=== PATIENT | female | born 1970 | race Caucasian/White ===

== ENCOUNTER 2019-05-14 19:12 | Observation (INO) | payer OTHER ==
[2019-05-14] MEDS ORDERED: SODIUM CHLORIDE 0.9% 1,000 ML IV ONE (19:24)
[2019-05-14] MEDS: SODIUM CHLORIDE 0.9% 1,000 ML IV SCH (19:44)
[2019-05-14 20:04] LABS: Anisocytosis Slight; Basophils # (A) 0.1 k/uL (0-0.2); Basophils % (A) 1 %; Eosinophils # (A) 0.5 k/uL (0-0.7); Eosinophils % (A) 5 %; HCT 24.4 % (34.0-46.0); Hypochromasia Marked; Lymphocytes # (A) 1.6 k/uL (1.0-4.8); Lymphocytes % (A) 16 %; MCH 15.5 pg (25.0-35.0); MCHC 26.1 g/dL (31.0-37.0); MCV 59.2 fL (80.0-100.0); Mean Platelet Volume 6.7; Microcytosis Marked; Monocytes # (A) 0.6 k/uL (0-1.0); Monocytes % (A) 6 %; Neutrophils # (A) 6.7 k/uL (1.3-7.7); Neutrophils % (A) 68 %; Platelet Count 382 k/uL (150-450); Poikilocytosis Slight; RBC 4.13 m/uL (3.80-5.40); RDW 18.9 % (11.5-15.5); WBC 9.9 k/uL (3.8-10.6)
[2019-05-14 20:05] LABS: Appearance,Urine Clear (Clear); Bacteria,Urine Rare /hpf; Bilirubin,Urine Negative (Negative); Blood,Urine Small (Negative); Color,Urine Yellow; Glucose,Urine (UA) Negative (Negative); Ketones,Urine Negative (Negative); Leukocyte Esterase,Urine Negative (Negative); Mucus,Urine Few /hpf; Nitrite,Urine Negative (Negative); Protein,Urine Negative (Negative); RBC,Urine 7 /hpf (0-5); Squamous Epithelial Cell,Urine <1 /hpf (0-4); Urobilinogen,Urine <2.0 mg/dL (<2.0); WBC,Urine 1 /hpf (0-5)
[2019-05-14 20:09] LABS: HGB 6.4 gm/dL (11.4-16.0)
--- NOTE | 2019-05-14 20:21 | ED ---
Back Pain HPI - General Chief Complaint: Back Pain/Injury Stated Complaint: Lower back pain Time Seen by Provider: 05/14/19 19:19 Source: patient Limitations: no limitations - History of Present Illness Initial Comments: 48-year-old female presents today for chief complaint of left-sided flank pain times one day. Patient states the past day she has had on and off left flank pain sharp in nature at times radiates towards her left groin. Patient denies known history of kidney stones denies dysuria urgency frequency or hematuria. Patient states when the pain is present she has nausea, vomiting. Denies chest pain SOB. Denies abdominal pain, vaginal bleeding. Patient denies rectal bleeding or dark stools. Patient denies any ither complaints. Denies fall/trauma injuries. - Related Data Allergies Allergy/AdvReac Type Severity Reaction Status Date / Time No Known Allergies Allergy Verified 05/14/19 21:22 Review of Systems ROS Statement: Those systems with pertinent positive or pertinent negative responses have been documented in the HPI. ROS Other: All systems not noted in ROS Statement are negative. Past Medical History Past Medical History: Asthma History of Any Multi-Drug Resistant Organisms: None Reported Past Surgical History: Section Past Psychological History: No Psychological Hx Reported Smoking Status: Never smoker Past Alcohol Use History: None Reported Past Drug Use History: None Reported General Exam - General Exam Comments Initial Comments: General: The patient is awake and alert, in no distress Eye: Pupils are equal, round and reactive to light, extra-ocular movements are intact. No nystagmus. There is normal conjunctiva bilaterally. No signs of icterus. Ears, nose, mouth and throat: There are moist but pale mucous membranes and no oral lesions. Neck: The neck is supple, there is no tenderness or JVD. Cardiovascular: There is a regular rate and rhythm. No murmur, rub or gallop is appreciated. Respiratory: Lungs are clear to auscultation, respirations are non-labored, breath sounds are equal. No wheezes, stridor, rales, or rhonchi. Gastrointestinal: Soft, non-distended, non-tender abdomen without masses or organomegaly noted. There is no rebound or guarding present. Musculoskeletal: Normal ROM, no tenderness. Strength 5/5. Sensation intact. Radial pulses equal bilaterally 2+. Neurological: A&O x 3. CN II-XII intact grossly, There are no obvious motor or sensory deficits. Coordination appears grossly intact. Speech is normal. Skin: Skin is warm and dry and no rashes or lesions are noted. Psychiatric: Cooperative, appropriate mood & affect, normal judgment. Limitations: no limitations Course Vital Signs 05/14/19 05/14/19 05/14/19 19:14 19:45 21:02 Temperature 98.6 F 98.4 F 98.2 F Pulse Rate 120 H 105 H 105 H Respiratory 18 16 16 Rate Blood Pressure 163/81 150/96 137/90 O2 Sat by Pulse 97 99 100 Oximetry Medical Decision Making - Medical Decision Making 48-year-old female presenting for left flank pain left UVJ stone. Patient has no current pain. No signs of infected stone. Patient states she is having per iods with her last menstruation one week prior. She admits to fatigue and pallor. Patient's hemoglobin 6.4. Denies any current vaginal bleeding or rectal bleeding or dark stools. Patient denies any history of alcohol abuse or use of anticoagulation. Patient states she has had elevated heart rate most of her life as well as heavy periods. At this time feel patient's anemia symptomatic patient will be transfused. Patient has no current pain associated with her left UVJ stone. Discussed case with attending provider Dr. France. Who is agreeable to admission. Dr. Rowan group accepted admission. Patient agreeable to care plan. NO current OBGYN care/evaluation for heavy vaginal bleeding. - Lab Data Result diagrams: 05/14/19 19:43 05/14/19 19:43 Lab Results 05/14/19 05/14/19 05/14/19 Range/Units 19:43 19:43 19:43 WBC 9.9 (3.8-10.6) k/uL RBC 4.13 (3.80-5.40) m/uL Hgb 6.4 L* (11.4-16.0) gm/dL Hct 24.4 L (34.0-46.0) % MCV 59.2 L (80.0-100.0) fL MCH 15.5 L (25.0-35.0) pg MCHC 26.1 L (31.0-37.0) g/dL RDW 18.9 H (11.5-15.5) % Plt Count 382 (150-450) k/uL Neutrophils % 68 % Lymphocytes % 16 % Monocytes % 6 % Eosinophils % 5 % Basophils % 1 % Neutrophils # 6.7 (1.3-7.7) k/uL Lymphocytes # 1.6 (1.0-4.8) k/uL Monocytes # 0.6 (0-1.0) k/uL Eosinophils # 0.5 (0-0.7) k/uL Basophils # 0.1 (0-0.2) k/uL Hypochromasia Marked Poikilocytosis Slight Anisocytosis Slight Microcytosis Marked Sodium 137 (137-145) mmol/L Potassium 3.9 (3.5-5.1) mmol/L Chloride 104 (98-107) mmol/L Carbon Dioxide 25 (22-30) mmol/L Anion Gap 8 mmol/L BUN 12 (7-17) mg/dL Creatinine 0.58 (0.52-1.04) mg/dL Est GFR (CKD-EPI)AfAm >90 (>60 ml/min/1.73 sqM) Est GFR (CKD-EPI)NonAf >90 (>60 ml/min/1.73 sqM) Glucose 99 (74-99) mg/dL Calcium 9.6 (8.4-10.2) mg/dL Total Bilirubin 0.5 (0.2-1.3) mg/dL AST 24 (14-36) U/L ALT 24 (9-52) U/L Alkaline Phosphatase 86 (38-126) U/L Total Protein 8.1 (6.3-8.2) g/dL Albumin 4.5 (3.5-5.0) g/dL Urine Color Yellow Urine Appearance Clear (Clear) Urine pH 6.0 (5.0-8.0) Ur Specific [place] 1.010 (1.001-1.035) Urine Protein Negative (Negative) Urine Glucose (UA) Negative (Negative) Urine Ketones Negative (Negative) Urine Blood Small H (Negative) Urine Nitrite Negative (Negative) Urine Bilirubin Negative (Negative) Urine Urobilinogen <2.0 (<2.0) mg/dL Ur Leukocyte Esterase Negative (Negative) Urine RBC 7 H (0-5) /hpf Urine WBC 1 (0-5) /hpf Ur Squamous Epith Cells <1 (0-4) /hpf Urine Bacteria Rare H (None) /hpf Urine Mucus Few H (None) /hpf Urine HCG, Qual (Not Detectd) Blood Type Recheck Bld Type Recheck Status Spec Expiration Date 05/14/19 05/14/19 Range/Units 19:43 20:43 WBC (3.8-10.6) k/uL RBC (3.80-5.40) m/uL Hgb (11.4-16.0) gm/dL Hct (34.0-46.0) % MCV (80.0-100.0) fL MCH (25.0-35.0) pg MCHC (31.0-37.0) g/dL RDW (11.5-15.5) % Plt Count (150-450) k/uL Neutrophils % % Lymphocytes % % Monocytes % % Eosinophils % % Basophils % % Neutrophils # (1.3-7.7) k/uL Lymphocytes # (1.0-4.8) k/uL Monocytes # (0-1.0) k/uL Eosinophils # (0-0.7) k/uL Basophils # (0-0.2) k/uL Hypochromasia Poikilocytosis Anisocytosis Microcytosis Sodium (137-145) mmol/L Potassium (3.5-5.1) mmol/L Chloride (98-107) mmol/L Carbon Dioxide (22-30) mmol/L Anion Gap mmol/L BUN (7-17) mg/dL Creatinine (0.52-1.04) mg/dL Est GFR (CKD-EPI)AfAm (>60 ml/min/1.73 sqM) Est GFR (CKD-EPI)NonAf (>60 ml/min/1.73 sqM) Glucose (74-99) mg/dL Calcium (8.4-10.2) mg/dL Total Bilirubin (0.2-1.3) mg/dL AST (14-36) U/L ALT (9-52) U/L Alkaline Phosphatase (38-126) U/L Total Protein (6.3-8.2) g/dL Albumin (3.5-5.0) g/dL Urine Color Urine Appearance (Clear) Urine pH (5.0-8.0) Ur Specific [place] (1.001-1.035) Urine Protein (Negative) Urine Glucose (UA) (Negative) Urine Ketones (Negative) Urine Blood (Negative) Urine Nitrite (Negative) Urine Bilirubin (Negative) Urine Urobilinogen (<2.0) mg/dL Ur Leukocyte Esterase (Negative) Urine RBC (0-5) /hpf Urine WBC (0-5) /hpf Ur Squamous Epith Cells (0-4) /hpf Urine Bacteria (None) /hpf Urine Mucus (None) /hpf Urine HCG, Qual Not Detected (Not Detectd) Blood Type Recheck No Previous Record Bld Type Recheck Status CABO Indicated Spec Expiration Date 05/17/2019 - 2342 Disposition Clinical Impression: Symptomatic anemia, History of heavy vaginal bleeding, Tachycardia, Left ureteral stone Disposition: ADMITTED IP TO THIS [facility] Condition: Stable Is patient prescribed a controlled substance at d/c from ED?: No Time of Disposition: 20:47 Decision to Admit Reason: Admit from EC Decision Date: 05/14/19 Decision Time: 20:47
--- NOTE | 2019-05-14 20:25 | CT ---
EXAMINATION TYPE: CT abdomen pelvis wo con DATE OF EXAM: 05/14/2019 COMPARISON: None HISTORY: Left flank pain and vomiting CT DLP: 803.9 mGycm Automated exposure control for dose reduction was used. TECHNIQUE: Helical acquisition of images was performed from the lung bases through the pelvis. FINDINGS: Lung bases are clear. There is no pleural effusion. Heart size is normal. There is no pericardial eff usion. Liver shows no focal defect. Spleen pancreas gallbladder appear normal. Stomach appears fairly normal . There is small hiatal hernia. There is no adrenal mass. Kidneys have normal size. There is bilateral multiple renal calculi. These measure up to 5 mm. There is 7 mm obstructing calculus at the left ureteral pelvic junction. There is mild left-sided hydronephrosis. There is mild left side perinephric edema. There is no retroperitone al adenopathy. Appendix appears normal. Bladder distends smoothly. Uterus is anteverted. There is no free fluid in the pelvis. There is no mesenteric edema. There is no ascites or free air. There is no sign of a bowel obstructio n. I see no bony destructive process. Lumbar vertebra have normal spacing and alignment. There is no compression fracture. Bony pelvis is intact. IMPRESSION: THERE IS OBSTRUCTING CALCULUS AT THE LEFT URETEROPELVIC JUNCTION WITH LEFT-SIDED HYDRONEPHROSIS. MULT IPLE BILATERAL SMALL RENAL CALCULI. NORMAL APPENDIX.
[2019-05-14 20:34] LABS: ALT 24 U/L (9-52); AST 24 U/L (14-36); African American GFR (CKD) >90 (>60 ml/min/1.73 sqM); Albumin 4.5 g/dL (3.5-5.0); Alkaline Phosphatase 86 U/L (38-126); Anion Gap 8 mmol/L; Blood Urea Nitrogen 12 mg/dL (7-17); Calcium 9.6 mg/dL (8.4-10.2); Carbon Dioxide 25 mmol/L (22-30); Chloride 104 mmol/L (98-107); Glucose 99 mg/dL (74-99); Non-African American GFR(CKD) >90 (>60 ml/min/1.73 sqM); Potassium 3.9 mmol/L (3.5-5.1); Sodium 137 mmol/L (137-145); Total Bilirubin 0.5 mg/dL (0.2-1.3); Total Protein 8.1 g/dL (6.3-8.2)
[2019-05-14] MEDS ORDERED: NALOXONE 0.4 MG/ML 1 ML VIAL IV PRN (20:44)
[2019-05-15] MEDS: SODIUM CHLORIDE 0.9% 1,000 ML IV SCH ×3 (06:34→21:56)
[2019-05-15 11:58] LABS: Anisocytosis Moderate; Basophils # (A) 0.1 k/uL (0-0.2); Basophils % (A) 2 %; Eosinophils # (A) 0.5 k/uL (0-0.7); Eosinophils % (A) 7 %; HCT 25.3 % (34.0-46.0); Hypochromasia Marked; Lymphocytes # (A) 1.5 k/uL (1.0-4.8); Lymphocytes % (A) 20 %; MCH 15.9 pg (25.0-35.0); MCHC 25.8 g/dL (31.0-37.0); MCV 61.8 fL (80.0-100.0); Mean Platelet Volume 7.7; Microcytosis Marked; Monocytes # (A) 0.5 k/uL (0-1.0); Monocytes % (A) 6 %; Neutrophils # (A) 4.8 k/uL (1.3-7.7); Neutrophils % (A) 63 %; Platelet Count 351 k/uL (150-450); Poikilocytosis Moderate; RDW 21.8 % (11.5-15.5); WBC 7.5 k/uL (3.8-10.6)
[2019-05-15 12:06] LABS: HGB 6.5 gm/dL (11.4-16.0)
[2019-05-15 15:36] LABS: Anisocytosis Moderate; Basophils # (A) 0.1 k/uL (0-0.2); Basophils % (A) 1 %; Eosinophils # (A) 0.5 k/uL (0-0.7); Eosinophils % (A) 7 %; HCT 26.9 % (34.0-46.0); HGB 7.8 gm/dL (11.4-16.0); Hypochromasia Marked; Lymphocytes # (A) 1.6 k/uL (1.0-4.8); Lymphocytes % (A) 23 %; MCH 18.6 pg (25.0-35.0); MCHC 28.9 g/dL (31.0-37.0); MCV 64.5 fL (80.0-100.0); Mean Platelet Volume 7.7; Microcytosis Marked; Monocytes # (A) 0.5 k/uL (0-1.0); Monocytes % (A) 7 %; Neutrophils # (A) 4.1 k/uL (1.3-7.7); Neutrophils % (A) 59 %; Platelet Count 321 k/uL (150-450); Poikilocytosis Marked; RBC 4.17 m/uL (3.80-5.40)
--- NOTE | 2019-05-15 18:19 | P.HPIM ---
History of Present Illness H&P Date: 05/15/19 Chief Complaint: Left flank pain Ms. Cook is a 48-year-old female with a past medical history of asthma and seasonal ALLERGIES coming in with a chief complaint of left-sided flank pain. Patient states that she started to have left-sided flank short pain that was radiating to her left groin. Patient was also having associated nausea and vomiting she threw up around 10-12 times yesterday. Patient denies having any hematuria or dysuria or increased frequency in her urination. Patient denies having any history of kidney stones. Patient denied having abdominal pain. No diarrhea or constipation. She denies having any chest pain or difficulty in breathing. Patient denies having any fevers chills or rigors. In the emergency room patient had a CAT scan of the abdomen and pelvis showing obstructing calculi at the left uretero pelvic junction with left-sided hyd ronephrosis. Multiple bilateral small renal calculi. And her blood work done showed a hemoglobin of 6.4 with an MCV of the 59.2. Patient mentions about having menorrhagia. She states that her periods are regular but she has heavy periods with clotting. Patient also complains of chronic fatigue and mild shortness of breath. She says that she was evaluated by her primary care physician and was diagnosed with seasonal ALLERGIES and that she is getting ALLERGY shots. Review of Systems REVIEW OF SYSTEMS: PSYCH: No anxiety or depression. NEURO:No c/o weakness of the extremties, No facial droop, No speech abnormalities. VASCULAR: Peripheral nervous system within the normal limits no edema HEMATOLOGIC: No history of easy bleeding and bruising . No recent infections . RESPIRATORY: No cough, No SOB, No chest discomfort. IMMUNE: No infections INTEGUMENT: no rashes OPHTHALMOLOGIC: No blurry vision and no eye discharge : No dysuria or hematuria [employer]ING CLERK: Menorrhagia CARDIAC: No chest pain , shortness of breath , paroxysmal nocturnal dyspnea MUSCULOSKELETAL : No Aches or pains in the joints or muscles. GI: As per HPI All 13 review of systems are done and are negative except for the ones mentioned above. Past Medical History Past Medical History: Asthma, GERD/Reflux History of Any Multi-Drug Resistant Organisms: None Reported Past Surgical History: Section Past Anesthesia/Blood Transfusion Reactions: No Reported Reaction Past Psychological History: No Psychological Hx Reported Smoking Status: Never smoker Past Alcohol Use History: Rare Additional Past Alcohol Use History / Comment(s): pt states she has an occational drink every 6 months or so Past Drug Use History: None Reported Medications and Allergies Home Medications Medication Instructions Recorded Confirmed Type Albuterol Inhaler [Ventolin Hfa 1 - 2 puff INHALATION RT-Q6H PRN 05/14/1905/14 History Inhaler] Esomeprazole Magnesium [NexIUM] 40 mg PO DAILY PRN 05/14/19 05/14/19 History Allergies Allergy/AdvReac Type Severity Reaction Status Date / Time No Known Allergies Allergy Verified 05/14/19 21:22 Physical Exam Vitals: Vital Signs Temp Pulse Pulse Resp BP BP Pulse Ox 05/15/19 14:58 98.5 F 90 17 139/86 96 05/15/19 14:55 98.5 F 95 17 95 05/15/19 13:55 97.7 F 95 17 139/89 94 L 05/15/19 13:21 98.2 F 94 17 124/77 05/15/19 13:12 98.5 F 98 17 135/88 05/15/19 13:08 98.3 F 101 H 17 153/84 95 05/15/19 06:57 98.5 F 97 17 130/78 96 05/15/19 06:32 98 F 92 16 121/74 05/15/19 06:30 98 F 99 16 131/77 05/15/19 03:38 98.3 F 94 16 136/77 97 05/15/19 03:08 98 F 93 16 120/77 96 05/15/19 02:58 98.1 F 100 16 129/77 95 05/15/19 02:49 98.5 F 93 16 134/80 97 05/15/19 00:46 98.6 F 94 16 145/87 97 05/14/19 22:00 97.9 F 100 16 149/84 99 05/14/19 21:02 98.2 F 105 H 16 137/90 100 05/14/19 19:45 98.4 F 105 H 16 150/96 99 05/14/19 19:14 98.6 F 120 H 18 163/81 97 Intake and Output 05/15/19 05/15/19 05/15/19 06:59 14:59 22:59 Intake Total 310 1718 Balance 310 1718 Intake: Intake, IV Titration 500 Amount Sodium Chloride 0.9% 1, 500 000 ml @ 100 mls/hr IV . Q10H [facility] Rx#:[id number] Oral 598 Blood Product 310 620 Rc Pheresis 2 As3 Unit 310 [id number] Rc Pheresis 2 As3 Unit 310 [id number] Other: Voiding Method Toilet # Voids 4 2 GENERAL EXAM GEN. APPEARANCE: alert, in no apparent distress HEAD EXAM: atraumatic, normocephalic, normal inspection EYE EXAM: Mild pallor. No icterus. No thyromegaly. ENT EXAM: normal exam, mucous membranes moist NECK EXAM: normal inspection. no lymphadenopathy RESPIRATORY EXAM: normal lung sounds bilaterally. No wheezes or crackles. CARDIOVASCULAR EXAM: Tachycardia. S1 and S2 heard. GI/ABDOMINAL EXAM: soft, normal bowel sounds. No distention. No tenderness. No guarding or rigidity. EXTREMITIES EXAM: No edema. BACK EXAM: No CVA tenderness NEUROLOGICAL EXAM: alert, oriented X3, no focal neurological deficits PSYCHIATRIC EXAM: normal affect, normal mood SKIN EXAM: Eczematous rash over the upper and lower extremities Results CBC & Chem 7: 05/15/19 15:20 05/14/19 19:43 Labs: Abnormal Lab Results - Last 24 Hours (Table) 05/14/19 05/14/19 05/14/19 Range/Units 19:43 19:43 20:43 Hgb 6.4 L* (11.4-16.0) gm/dL Hct 24.4 L (34.0-46.0) % MCV 59.2 L (80.0-100.0) fL MCH 15.5 L (25.0-35.0) pg MCHC 26.1 L (31.0-37.0) g/dL RDW 18.9 H (11.5-15.5) % Urine Blood Small H (Negative) Urine RBC 7 H (0-5) /hpf Urine Bacteria Rare H (None) /hpf Urine Mucus Few H (None) /hpf Crossmatch See Detail 05/15/19 05/15/19 Range/Units 11:01 15:20 Hgb 6.5 L* 7.8 L (11.4-16.0) gm/dL Hct 25.3 L 26.9 L (34.0-46.0) % MCV 61.8 L 64.5 L (80.0-100.0) fL MCH 15.9 L 18.6 L (25.0-35.0) pg MCHC 25.8 L 28.9 L (31.0-37.0) g/dL RDW 21.8 H 24.0 H (11.5-15.5) % Urine Blood (Negative) Urine RBC (0-5) /hpf Urine Bacteria (None) /hpf Urine Mucus (None) /hpf Crossmatch Thrombosis Risk Factor Assmnt - Choose All That Apply Each Factor Represents 1 point: Age 41-60 years, Obesity (BMI >25) Thrombosis Risk Factor Assessment Total Risk Factor Score: 2 Thrombosis Risk Factor Assessment Level: Low Risk Assessment and Plan Assessment: ASSESSMENT Left-sided flank pain - due to obstructing renal calculi at the ureteropelvic junction with left-sided hydronephrosis Anemia- possibly iron deficiency anemia due to menorrhagia Asthma Obesity with BMI of 34.3 PLAN: Patient's left-sided flank pain has resolved completely. Probably due to passing of the renal calculi. She received 2 units of PRBCs and her hemoglobin is at 7.4. We will check iron panel, to look for chronic blood loss. The treatment plan was discussed with the patient in detail. Further recomme ndations to follow depending on the progress of the patient.
[2019-05-15] MEDS ORDERED: diphenhydrAMINE 25 MG CAP PO ONE (21:44)
[2019-05-15] MEDS ORDERED: FAMOTIDINE 20 MG TAB PO STA (21:44)
[2019-05-15] MEDS ORDERED: methylPREDNISolone SOD SUCCI 125 MG/2 ML VIAL IV STA (21:45)
[2019-05-16 07:48] VITALS: RESP 18
[2019-05-16 08:01] LABS: African American GFR (CKD) >90 (>60 ml/min/1.73 sqM); Anion Gap 12 mmol/L; Blood Urea Nitrogen 5 mg/dL (7-17); Calcium 9.4 mg/dL (8.4-10.2); Carbon Dioxide 22 mmol/L (22-30); Chloride 105 mmol/L (98-107); Glucose 172 mg/dL (74-99); Non-African American GFR(CKD) >90 (>60 ml/min/1.73 sqM); Potassium 4.4 mmol/L (3.5-5.1); Sodium 139 mmol/L (137-145)
[2019-05-16 08:10] LABS: Anisocytosis Moderate; HCT 30.2 % (34.0-46.0); HGB 8.5 gm/dL (11.4-16.0); Hypochromasia Marked; MCH 18.4 pg (25.0-35.0); MCHC 28.3 g/dL (31.0-37.0); MCV 64.9 fL (80.0-100.0); Mean Platelet Volume 8.5; Microcytosis Marked; Platelet Count 367 k/uL (150-450); Poikilocytosis Marked; RBC 4.66 m/uL (3.80-5.40); RDW 23.6 % (11.5-15.5)
[2019-05-16 10:00] LABS: Basophils # (M) 0.07 k/uL (0-0.2); Neutrophils % (M) 84 %; Nucleated Red Blood Cells 1 /100 WBC (0-0); Total Cells Counted 200
[2019-05-16 10:02] LABS: Lymphocytes # (M) 0.88 k/uL (1.0-4.8); Neutrophils # (M) 5.71 k/uL (1.3-7.7); WBC 6.8 k/uL (3.8-10.6)
[2019-05-16] MEDS: SODIUM CHLORIDE 0.9% 1,000 ML IV SCH (14:09)
[2019-05-16 15:14] VITALS: PULSE 98; TEMP 98.4
[2019-05-16 15:22] VITALS: BP 157/77
--- NOTE | 2019-05-16 15:24 | P.DS ---
Providers Date of admission: 05/16/19 08:34 Expected date of discharge: 05/16/19 Attending physician: Linda Rowan Consults: 05/15/19 18:29 Consult Physician Routine Consulting Provider: Joseph Nicholson Consult Reason/Comments: LEFT SIDED FLANK PAIN Do you want consulting provider notified?: Yes Primary care physician: Physician Nonstaff Hospital Course: HPI - Ms. Cook is a 48-year-old female with a past medical history of asthma and seasonal ALLERGIES coming in with a chief complaint of left-sided flank pain. Patient states that she started to have left-sided flank short pain that was radiating to her left groin. Patient was also having associated nausea and vomiting she threw up around 10-12 times yesterday. Patient denies having any hematuria or dysuria or increased frequency in her urination. Patient denies having any history of kidney stones. Patient denied having abdominal pain. No diarrhea or constipation. She denies having any chest pain or difficulty in breathing. Patient denies having any fevers chills or rigors. In the emergency room patient had a CAT scan of the abdomen and pelvis showing obstructing calculi at the left uretero pelvic junction with left-sided hydronephrosis. Multiple bilateral small renal calculi. And her blood work done showed a hemoglobin of 6.4 with an MCV of the 59.2. Patient mentions about having menorrhagia. She states that her periods are regular but she has heavy periods with clotting. Patient also complains of chronic fatigue and mild shortness of breath. She says that she was evaluated by her primary care physician and was diagnosed with seasonal ALLERGIES and that she is getting ALLERGY shots. During her hospital stay- patient was given 2 units of PRBCs and hemoglobin came up to 8.5. She was evaluated by urology and they started her on Flomax 0.4 mg and Motrin when necessary for pain. She was cleared by urology to be discharged home. Now that her hemoglobin is stable around 8. She is stable to be going home. Counselled the patient regarding follow-up with [employer] doctor for menorrhagia and also to start taking iron supplements that are prescribed today. Follow-up; she is advised to follow up with her primary care physician in 2-3 days. Vital Signs - 8 hr 05/16/19 05/16/19 15:00 15:21 Temperature 98.4 F Pulse Rate [ 98 Pulse Oximetery ] Respiratory 18 Rate Blood Pressure 169/102 157/77 [Right Arm] O2 Sat by Pulse 97 Oximetry Laboratory Last Values WBC 6.8 k/uL (3.8-10.6) 05/16/19 06:56 RBC 4.66 m/uL (3.80-5.40) 05/16/19 06:56 Hgb 8.5 gm/dL (11.4-16.0) L 05/16/19 06:56 Hct 30.2 % (34.0-46.0) L 05/16/19 06:56 MCV 64.9 fL (80.0-100.0) L 05/16/19 06:56 MCH 18.4 pg (25.0-35.0) L 05/16/19 06:56 MCHC 28.3 g/dL (31.0-37.0) L 05/16/19 06:56 RDW 23.6 % (11.5-15.5) H 05/16/19 06:56 Plt Count 367 k/uL (150-450) 05/16/19 06:56 Neutrophils % 59 % 05/15/19 15:20 Neutrophils % (Manual) 84 % 05/16/19 06:56 Lymphocytes % 23 % 05/15/19 15:20 Lymphocytes % (Manual) 13 % 05/16/19 06:56 Monocytes % 7 % 05/15/19 15:20 Monocytes % (Manual) 3 % 05/16/19 06:56 Eosinophils % 7 % 05/15/19 15:20 Basophils % 1 % 05/15/19 15:20 Basophils % (Manual) 1 % 05/16/19 06:56 Neutrophils # 4.1 k/uL (1.3-7.7) 05/15/19 15:20 Neutrophils # (Manual) 5.71 k/uL (1.3-7.7) 05/16/19 06:56 Lymphocytes # 1.6 k/uL (1.0-4.8) 05/15/19 15:20 Lymphocytes # (Manual) 0.88 k/uL (1.0-4.8) L 05/16/19 06:56 Monocytes # 0.5 k/uL (0-1.0) 05/15/19 15:20 Monocytes # (Manual) 0.20 k/uL (0-1.0) 05/16/19 06:56 Eosinophils # 0.5 k/uL (0-0.7) 05/15/19 15:20 Basophils # 0.1 k/uL (0-0.2) 05/15/19 15:20 Basophils # (Manual) 0.07 k/uL (0-0.2) 05/16/19 06:56 Nucleated RBCs 1 /100 WBC (0-0) H 05/16/19 06:56 Manual Slide Review Performed 05/16/19 06:56 Hypochromasia Marked 05/16/19 06:56 Poikilocytosis Marked 05/16/19 06:56 Anisocytosis Moderate 05/16/19 06:56 Microcytosis Marked 05/16/19 06:56 Sodium 139 mmol/L (137-145) 05/16/19 06:56 Potassium 4.4 mmol/L (3.5-5.1) 05/16/19 06:56 Chloride 105 mmol/L (98-107) 05/16/19 06:56 Carbon Dioxide 22 mmol/L (22-30) 05/16/19 06:56 Anion Gap 12 mmol/L 05/16/19 06:56 BUN 5 mg/dL (7-17) L 05/16/19 06:56 Creatinine 0.44 mg/dL (0.52-1.04) L 05/16/19 06:56 Est GFR (CKD-EPI)AfAm >90 (>60 ml/min/1.73 sqM) 05/16/19 06:56 Est GFR (CKD-EPI)NonAf >90 (>60 ml/min/1.73 sqM) 05/16/19 06:56 Glucose 172 mg/dL (74-99) H 05/16/19 06:56 Calcium 9.4 mg/dL (8.4-10.2) 05/16/19 06:56 Total Bilirubin 0.5 mg/dL (0.2-1.3) 05/14/19 19:43 AST 24 U/L (14-36) 05/14/19 19:43 ALT 24 U/L (9-52) 05/14/19 19:43 Alkaline Phosphatase 86 U/L (38-126) 05/14/19 19:43 Total Protein 8.1 g/dL (6.3-8.2) 05/14/19 19:43 Albumin 4.5 g/dL (3.5-5.0) 05/14/19 19:43 Urine Color Yellow 05/14/19 19:43 Urine Appearance Clear (Clear) 05/14/19 19:43 Urine pH 6.0 (5.0-8.0) 05/14/19 19:43 Ur Specific [place] 1.010 (1.001-1.035) 05/14/19 19:43 Urine Protein Negative (Negative) 05/14/19 19:43 Urine Glucose (UA) Negative (Negative) 05/14/19 19:43 Urine Ketones Negative (Negative) 05/14/19 19:43 Urine Blood Small (Negative) H 05/14/19 19:43 Urine Nitrite Negative (Negative) 05/14/19 19:43 Urine Bilirubin Negative (Negative) 05/14/19 19:43 Urine Urobilinogen <2.0 mg/dL (<2.0) 05/14/19 19:43 Ur Leukocyte Esterase Negative (Negative) 05/14/19 19:43 Urine RBC 7 /hpf (0-5) H 05/14/19 19:43 Urine WBC 1 /hpf (0-5) 05/14/19 19:43 Ur Squamous Epith Cells <1 /hpf (0-4) 05/14/19 19:43 Urine Bacteria Rare /hpf (None) H 05/14/19 19:43 Urine Mucus Few /hpf (None) H 05/14/19 19:43 Urine HCG, Qual Not Detected (Not Detectd) 05/14/19 19:43 Blood Type B Positive 05/14/19 20:43 Blood Type Confirm B Positive 05/14/19 19:43 Blood Type Recheck No Previous Record 05/14/19 20:43 Bld Type Recheck Status CABO Indicated 05/14/19 20:43 Antibody Screen POSITIVE 05/14/19 20:43 Antibody Identification Clin Significant ABs Ruled Out 05/14/19 20:43 Direct Antiglob Test Negative 05/14/19 20:43 Crossmatch See Detail 05/14/19 20:43 Spec Expiration Date 05/17/2019 6420 05/14/19 20:43 GEN. APPEARANCE: alert, in no apparent distress HEENt - Mild pallor, no icterus RESPIRATORY EXAM: normal lung sounds bilaterally. No wheezes or crackles. CARDIOVASCULAR EXAM: S1 and S2 heard. GI/ABDOMINAL EXAM: soft, normal bowel sounds. No distention. No tenderness. No guarding or rigidity. EXTREMITIES EXAM: No edema. BACK EXAM: No CVA tenderness NEUROLOGICAL EXAM: alert, oriented X3, no focal neurological deficits PSYCHIATRIC EXAM: normal affect, normal mood SKIN EXAM: Eczematous rash over the upper and lower extremities DISCHARGE DIAGNOSIS Left-sided flank pain - due to obstructing renal calculi at the ureteropelvic junction with left-sided hydronephrosis Anemia- possibly iron deficiency anemia due to menorrhagia Asthma Obesity with BMI of 34.3 More than 30 minutes spent towards the discharge of the patient. Patient Condition at Discharge: Stable Plan - Discharge Summary Discharge Rx Participant: Yes New Discharge Prescriptions: New Tamsulosin HCl [Flomax] 0.4 mg PO DAILY 14 Days #14 capsule Ibuprofen [Motrin] 600 mg PO Q6HR PRN 7 Days #21 tab PRN Reason: pain Ferrous Sulfate [Iron (65 MG Elemental)] 325 mg PO DAILY 30 Days #30 tab Continue Esomeprazole Magnesium [NexIUM] 40 mg PO DAILY PRN PRN Reason: Gi Upset Albuterol Inhaler [Ventolin Hfa Inhaler] 1 - 2 puff INHALATION RT-Q6H PRN PRN Reason: Shortness Of Breath Discharge Medication List Albuterol Inhaler [Ventolin Hfa Inhaler] 1 - 2 puff INHALATION RT-Q6H PRN 05/14/19 [History] Esomeprazole Magnesium [NexIUM] 40 mg PO DAILY PRN 05/14/19 [History] Ferrous Sulfate [Iron (65 MG Elemental)] 325 mg PO DAILY 30 Days #30 tab 05/16/19 [Rx] Ibuprofen [Motrin] 600 mg PO Q6HR PRN 7 Days #21 tab 05/16/19 [Rx] Tamsulosin HCl [Flomax] 0.4 mg PO DAILY 14 Days #14 capsule 05/16/19 [Rx] Follow up Appointment(s)/Referral(s): Nonstaff,Physician [Primary Care Provider] - 1-2 days Discharge Disposition: HOME SELF-CARE
--- NOTE | 2019-05-16 17:24 | P.GSCN ---
History of Present Illness Consult date: 05/16/19 Reason for Consult: left ureteral stone History of present illness: Ms. Cook the 48-year-old female admitted to the hospital with left-sided flank pain. She indicated her pain was associated with nausea, denies any urinary symptoms including dysuria, hematuria, frequency, or urgency. No previous history of renal calculi. In the ED she underwent a CT which showed a 7 mm stone in the left proximal ureter with mild hydronephrosis. Since admission she indicated her pain has improved, she was asymptomatic when I saw her this afternoon. She indicated her nausea and vomiting has resolved. Of note she lives in [place] and was here to visit family. Review of Systems - Constitutional Denies chills, Denies fatigue, Denies fever - EENT Ears, nose, mouth and throat: Denies headache - Respiratory Denies cough, Denies dyspnea - Gastrointestinal Denies abdominal pain, Denies nausea, Denies vomiting - Genitourinary Genitourinary: Reports flank pain, Denies dysuria, Denies hematuria, Denies kidney stones, Denies urgency - Musculoskeletal Denies muscle weakness - Psychiatric Denies confusion, Denies irritability Past Medical History Past Medical History: Asthma, GERD/Reflux History of Any Multi-Drug Resistant Organisms: None Reported Past Surgical History: Section Past Anesthesia/Blood Transfusion Reactions: No Reported Reaction Past Psychological History: No Psychological Hx Reported Smoking Status: Never smoker Past Alcohol Use History: Rare Additional Past Alcohol Use History / Comment(s): pt states she has an occational drink every 6 months or so Past Drug Use History: None Reported - Past Family History Mother History Unknown: Yes Medications and Allergies Home Medications Medication Instructions Recorded Confirmed Type RX: Albuterol Inhaler [Ventolin 1 - 2 puff INHALATION RT-Q6H PRN 05/14/19 05/14/19 History Hfa Inhaler] RX: Esomeprazole Magnesium [NexIUM] 40 mg PO DAILY PRN 05/14/19 05/14/19 History Ibuprofen [Motrin] 600 mg PO Q6HR PRN 7 Days #21 tab 05/16/19 Rx RX: Ferrous Sulfate [Iron (65 MG 325 mg PO DAILY 30 Days #30 tab 05/16/19 Rx Elemental)] Tamsulosin HCl [Flomax] 0.4 mg PO DAILY 14 Days #14 capsule 05/16/19 Rx Allergies Allergy/AdvReac Type Severity Reaction Status Date / Time No Known Allergies Allergy Verified 05/14/19 21:22 Surgical - Exam Vital Signs Temp Pulse Resp BP Pulse Ox 98.6 F 120 H 18 163/81 97 05/14/19 19:14 05/14/19 19:14 05/14/19 19:14 05/14/19 19:14 05/14/19 19:14 - General well developed, well nourished, no distress, no pain - Eyes normal ocular movement - ENT normal mucosa, no hearing loss - Respiratory normal expansion, normal respiratory effort - Musculoskeletal normal gait, normal posture - Psychiatric oriented to time, oriented to person, oriented to place, speech is normal Results - Labs 05/16/19 06:56 05/16/19 06:56 Abnormal Lab Results - Last 24 Hours (Table) 05/16/19 05/16/19 Range/Units 06:56 06:56 Hgb 8.5 L (11.4-16.0) gm/dL Hct 30.2 L (34.0-46.0) % MCV 64.9 L (80.0-100.0) fL MCH 18.4 L (25.0-35.0) pg MCHC 28.3 L (31.0-37.0) g/dL RDW 23.6 H (11.5-15.5) % Lymphocytes # (Manual) 0.88 L (1.0-4.8) k/uL Nucleated RBCs 1 H (0-0) /100 WBC BUN 5 L (7-17) mg/dL Creatinine 0.44 L (0.52-1.04) mg/dL Glucose 172 H (74-99) mg/dL Diabetes panel 05/16/19 Range/Units 06:56 Sodium 139 (137-145) mmol/L Potassium 4.4 (3.5-5.1) mmol/L Chloride 105 (98-107) mmol/L Carbon Dioxide 22 (22-30) mmol/L BUN 5 L (7-17) mg/dL Creatinine 0.44 L (0.52-1.04) mg/dL Glucose 172 H (74-99) mg/dL Calcium 9.4 (8.4-10.2) mg/dL Calcium panel 05/16/19 Range/Units 06:56 Calcium 9.4 (8.4-10.2) mg/dL Pituitary panel 05/16/19 Range/Units 06:56 Sodium 139 (137-145) mmol/L Potassium 4.4 (3.5-5.1) mmol/L Chloride 105 (98-107) mmol/L Carbon Dioxide 22 (22-30) mmol/L BUN 5 L (7-17) mg/dL Creatinine 0.44 L (0.52-1.04) mg/dL Glucose 172 H (74-99) mg/dL Calcium 9.4 (8.4-10.2) mg/dL Adrenal panel 05/16/19 Range/Units 06:56 Sodium 139 (137-145) mmol/L Potassium 4.4 (3.5-5.1) mmol/L Chloride 105 (98-107) mmol/L Carbon Dioxide 22 (22-30) mmol/L BUN 5 L (7-17) mg/dL Creatinine 0.44 L (0.52-1.04) mg/dL Glucose 172 H (74-99) mg/dL Calcium 9.4 (8.4-10.2) mg/dL - Imaging CT scan - abdomen: image reviewed (7 mm left proximal ureteral stone with mild hydro) Assessment and Plan Assessment: 48-year-old female admitted to the hospital with a left sided ureteral stone. CT was obtained which showed a 7 mm stone in the proximal left ureter with mild hydro. She is asymptomatic today and her vital signs are within normal limits. of note she lives in [place] and is here to visit family. Plan: -medical expulsive therapy, she can be discharged on Flomax and ibuprofen. I discussed with her that she needs to follow up with urologist at her home town. I discussed with her even if this the pain resolves is not an indication that she has passed a stone and she still needs to follow up with a urologist. I discussed with her as a potential if she has an obstruction and is not addressed then she could lose her renal function. She verbalizes understanding. From urology standpoint she is okay to be discharged home
[2019-05-17 13:03] LABS: % Iron Saturation 3.42 (12.00-45.00); Ferritin 4.1 ng/mL (10.0-291.0); Iron 17 ug/dL (50-170); Total Iron Binding Capacity 497 ug/dL (228-460)
== END 2019-05-16 17:51 | disposition home or self-care (01) ==
LOC: EC 19:12 → 4SSUR 20:52 → OBSVTOIN 05-16 08:34 → INTOOBSV 05-16 08:34 → UNDODISIN 05-16 17:51
PROVIDERS: ADMIT Hospitalist; ATTEND Hospitalist
DX: N13.2 Hydronephrosis with renal and ureteral calculous obstruction (principal); D64.9 Anemia, unspecified; E66.9 Obesity, unspecified; J45.909 Unspecified asthma, uncomplicated; N92.0 Excessive and frequent menstruation with regular cycle; R53.82 Chronic fatigue, unspecified; Z68.34 Body mass index [BMI] 34.0-34.9, adult; Z79.899 Other long term (current) drug therapy; Z87.442 Personal history of urinary calculi
CPT/HCPCS: 96361 ×3; 96374; 99284; 36415; 86900; 86901; 80053; 80048; 82728; 83540; 83550; 85025 ×3; 86850; 86920; 86870; 86880; 81001; 81025; 74176; G0378 ×3; P9016; J2930; 96360